=== PATIENT | female | born 1985 | race Caucasian/White ===

== ENCOUNTER 2016-05-26 18:34 | Outpatient (CLI) | payer SELFPAY | END 2016-05-26 18:35 | disposition critical access hospital (66) | DX: R56.9 Unspecified convulsions (principal) | CPT/HCPCS: A0425; A0427 ==

== ENCOUNTER 2016-05-26 19:06 | Emergency (ER) | payer SELFPAY ==
[2016-05-26] MEDS ORDERED: SODIUM CHLORIDE 0.9% 1,000 ML IV ONE ×2 (20:24→20:25)
[2016-05-26] MEDS ORDERED: FAMOTIDINE 20 MG/50 ML 50 ML IV ONE ×2 (20:25→20:38)
[2016-05-26] MEDS ORDERED: MAGNESIUM SULFATE 2 GRAM 50 ML IV ONE ×2 (20:25→20:37)
[2016-05-26] MEDS ORDERED: LORazepam 2 MG/ML SYRINGE IVP STA ×2 (20:25→21:12)
[2016-05-26] MEDS ORDERED: ONDANSETRON 4 MG/2 ML VIAL IVP STA (20:25)
[2016-05-26] MEDS ORDERED: ONDANSETRON 4 MG/2 ML VIAL ONE (20:37)
[2016-05-26] MEDS ORDERED: LORazepam 2 MG/ML SYRINGE ONE ×2 (20:37→21:19)
[2016-05-26] MEDS ORDERED: LIDOCAINE VISCOUS 2% 15 ML UDC MM STA (21:12)
[2016-05-26] MEDS ORDERED: MAG HYDROX/AL HYDROX/SIMETH 30 ML UDC PO STA (21:12)
[2016-05-26] MEDS ORDERED: MAG HYDROX/AL HYDROX/SIMETH 30 ML UDC ONE (21:19)
[2016-05-26] MEDS ORDERED: LIDOCAINE VISCOUS 2% 15 ML UDC MM ONE (21:19)
[2016-05-26] MEDS ORDERED: LORazepam 0.5 MG TABLET PO STA (22:08)
[2016-05-26] MEDS ORDERED: LORazepam 0.5 MG TABLET ONE (22:16)
== END 2016-05-26 22:42 | disposition home or self-care (01) ==
DX: F10.239 Alcohol dependence with withdrawal, unspecified (principal); K92.0 Hematemesis; G40.89 Other seizures
CPT/HCPCS: 36415; 80053; 80320; 81001; 81025; 83690; 83735; 85025; 93005; 96361; 96365; 96367; 96375; 96376; 99284; 99285; A9270; J2060